=== PATIENT | female | born 1975 | race African-American/Black ===

== ENCOUNTER 2018-01-12 10:31 | Emergency (ER) | payer OTHER ==
[~2018-01-12] VITALS: Ht 162.6 cm; Wt 65.0 kg
[2018-01-12 10:58] VITALS: BP 184/86; PULSE 78; RESP 18; TEMP 98.6; O2SAT 97
[2018-01-12] MEDS ORDERED: CLAR10CA3 PO (11:49)
[2018-01-12] MEDS ORDERED: AUGM875T3 PO (11:49)
[2018-01-12] MEDS ORDERED: NAPR500T2 PO (11:49)
--- NOTE | 2018-01-12 11:49 | PD ---
HPI Chief Complaint: Cold / Flu Symptoms Time Seen by Provider: 11:07 Travel History International Travel<30 days: No Contact w/Intl Traveler<30days: No Traveled to known affect area: No History of Present Illness HPI 42-year-old woman presents emerged from quitting of facial pain congestion pressure and ear pain. Ongoing for couple weeks. Worse recently. No fevers. No cough or cold. Otherwise well. History of allergy problems. She tried some [id number] cough cold medicine but has not helped. History Past Medical History Narrative Medical Hypertension Hypothyroidism Social History Tobacco Use: No Review of Systems Except as stated in HPI: all other systems reviewed are Neg Physical Exam Narrative GENERAL: Well-appearing 42-year-old woman, no acute distress. SKIN: Focused skin assessment warm/dry. HEAD: Atraumatic. Normocephalic. EYES: Pupils equal and round. No scleral icterus. No injection or drainage. ENT: No nasal bleeding or discharge. Mucous membranes pink and moist. Some sinus tenderness in the front. Throat is normal. TMs normal. NECK: Trachea midline. No JVD. No adenopathy. CARDIOVASCULAR: Regular rate and rhythm. No murmur appreciated. RESPIRATORY: No accessory muscle use. Clear to auscultation. Breath sounds equal bilaterally. GASTROINTESTINAL: Abdomen soft, non-tender, nondistended. Hepatic and splenic margins not palpable. MUSCULOSKELETAL: No obvious deformities. No clubbing. No cyanosis. No edema. NEUROLOGICAL: Awake and alert. No obvious cranial nerve deficits. Motor grossly within normal limits. Normal speech. PSYCHIATRIC: Appropriate mood and affect; insight and judgment normal. Data Data Last Documented VS Vital Signs Date Time Temp Pulse Resp B/P (MAP) Pulse Ox O2 Delivery O2 Flow Rate FiO2 01/12/18 10:58 98.6 78 18 184/86 (090) 97 MDM Medical Decision Making Medical Screen Exam Complete: Yes Emergency Medical Condition: Yes Differential Diagnosis Allergies, infection, sinusitis, effusion, other Narrative Course 42-year-old woman with sinus pressure and pain. No fevers. Ongoing for 2 weeks. Likely allergic congestion and sinusitis. Less likely bacterial. Will try decongestants and antihistamines. If no improvement will recommend antibiotics. Avoid Sudafed because of elevated blood pressure. Diagnosis Primary Impression: Sinusitis Patient Instructions: General Instructions Additional Instructions: Take naproxen and loratadine as prescribed. Consider using a [place] pot or nasal wash system. If you fail to improve in 48-72 hours, or if he develops fever over 1015, take antibiotics as prescribed. Follow-up with your primary physician in the next 3-5 days. Med/Other Pt SpecificInfo: Prescription(s) given Scripts Amoxicillin-Clavulanate (Augmentin) 875-125 Mg Tab 1 TAB PO BID for Infection for 10 Days, #20 TAB 0 Refills Prov: Jeffery Anaya MD 01/12/18 Loratadine (Claritin) 10 Mg Cap 10 MG PO DAILY for Allergy Management for 30 Days, #30 CAP 0 Refills Prov: Jeffery Anaya MD 01/12/18 Naproxen (Naproxen) 500 Mg Tab 500 MG PO BID, #20 TAB 0 Refills Prov: Jeffery Anaya MD 01/12/18 Disposition: 01 DISCHARGE HOME Condition: Stable Jeffery Anaya MD January 12, 2018 11:49
== END 2018-01-12 11:57 | disposition home or self-care (01) ==
LOC: NEPK 10:31
DX: J32.9 Chronic sinusitis, unspecified (principal); I10 Essential (primary) hypertension; E03.9 Hypothyroidism, unspecified
CPT/HCPCS: 99283